=== PATIENT | female | born 1960 | race Caucasian/White ===

== ENCOUNTER 2016-09-25 14:27 | Emergency (ER) | payer OTHER ==
[~2016-09-25] VITALS: Ht 172.7 cm; Wt 77.3 kg
[~2016-09-25 14:27] MED LIST: ALBU8.5H2 INH; AMIO200T PO; ASPI-973 PO; CHOL200025 PO; FLUO40CA PO; PANT40TA3 PO; WARF5TAB7 PO
[2016-09-25 15:06] VITALS: BP 139/89; PULSE 63; RESP 16; O2SAT 100
[2016-09-25 15:55] VITALS: BP 137/78; PULSE 54; RESP 16; O2SAT 98
[2016-09-25 16:05] LABS: BASOPHILS % (AUTO) 0.5 % (0-3); EOSINOPHILS % (AUTO) 2.1 % (0-5); MONOCYTES % (AUTO) 7.1 % (4-12); Mean Corpuscular Hemoglobin 30.1 pg (27.0-35.0); Mean Corpuscular Volume 92.4 fL (81-100); NEUTROPHILS % (AUTO) 58.4 % (40-74); Platelet Count 204 bil/L (150-400)
--- NOTE | 2016-09-25 16:26 | DRSVH ---
PROCEDURE: X-RAY CHEST ONE VIEW, PORTABLE ([id number]) INDICATIONS: weakness TECHNIQUE: One view of the chest was acquired. COMPARISON: [facility], CR, XR CHEST 1VW (PORTABLE), 05/20/2016, 3:46. FINDINGS: Surgical changes and devices: Extensive surgical clips left axilla, consistent with prior breast carc inoma surgery. Lungs and pleura: No pleural effusions or pneumothorax. Lungs are clear. Mediastinum: Mediastinal contours appear normal. Heart size is normal. Bones and chest wall: No suspicious bony lesions. Overlying soft tissues appear unremarkable. IMPRESSION: Stable appearance of the chest, prior left breast carcinoma surgery. No sign of metastat ic disease, source of weakness is not found. Dictated by: Brennan Rendon M.D. on 09/25/2016 at 16:24 Approved by: Brennan Rendon M.D. on 09/25/2016 at 16:25
[2016-09-25 16:30] LABS: Magnesium 1.8 mg/dL (1.6-2.6)
[2016-09-25 16:41] LABS: TROPONIN T < 0.010 ug/L (0.0-0.011)
[2016-09-25 16:49] VITALS: BP 141/71; PULSE 57; RESP 16; O2SAT 98
--- NOTE | 2016-09-25 16:52 | ED.REPORT ---
HPI-General Illness Date of Service Sep 25, 2016 ED Provider: Jose Rafael Pizano MD Pt is a 56 year old female with a medical history including asthma, breast cancer, and atrial fibrillationo status post ablation procedure who presents to the ED from Urgent Care with fatigue onset 1.5 weeks ago. Associated symptoms include diaphoresis, nausea, and headache. The patient frequently has to sit down at work and is taking more naps than usual. She denies vomiting, fever, chills, chest pain, shortness of breath, hematochezia, vaginal bleeding, leg swelling, numbness, weakness, or other symptoms. The patient has been taking Amiodarone for the past five months and takes Tylenol regularly for her headaches. Nursing Notes Stated Complaint: FATIGUE, NAUSIA Chief Complaint: General Complaint Nursing Notes Reviewed: Yes Allergies: Coded Allergies: No Known Allergies (Verified Allergy, Unknown, 05/20/16) Scheduled Amiodarone (Amiodarone) 200 Mg Tablet 200 MG PO BID Aspirin (Aspirin) 81 Mg Tablet 81 MG PO DAILY Cholecalciferol (Vitamin D3) (Vitamin D3) 2,000 Unit Tablet 6,000 UNIT PO DAILY Fluoxetine (Fluoxetine) 40 Mg Capsule 40 MG PO DAILY Pantoprazole DR (Pantoprazole DR) 40 Mg Tablet.dr 40 MG PO DAILY Sulfamethoxazole/Trimeth 800-160 mg (Bactrim DS) 1 Each Tablet 1 TABLET PO BID Warfarin Sodium (Warfarin Sodium) 5 Mg Tablet 5 MG PO Daily except Warfarin Sodium (Warfarin Sodium) 5 Mg Tablet 2.5 MG PO Scheduled PRN Albuterol HFA (Proair HFA) 8.5 Gm Hfa.aer.ad 2 PUFFS INH q4-6 hours PRN PRN For Shortness of Breath General Time Seen by MD: 16:06 Chief Complaint Other (Fatigue) Hx Obtained From: Patient Arrived By: Walk-in Sudden in Onset?: No Onset Occurred: More than a week ago... (1.5 weeks) Symptom Duration: Since onset Location: : Head Quality: Aching Severity: Current: Moderate Severity: Maximum: Moderate Pertinent Negative: Relieved by nothing Context Related History: Reports Asthma, Reports Cancer Recent Healthcare: No recent doctor visit Past Medical History Past Medical History Paroxysmal a fib with RVR (patient reports cardioversion 9 prior to subsequent ablation) Paroxysmal atrial flutter on Warfarin Asthma History of breast cancer, stage I with TRAM flap reconstruction Previous history of alcoholism with subsequent recovery Reports: Asthma Reports: Atrial fibrillation Past Surgical History Cardiac ablation for atrial flutter by Dr. Chang August 2014 Incarcerated inguinal hernia on the left February 2016 Ventral hernia repair October 2010 Cardiac ablation #2 in May 16, 2016 Smoking History Never Smoker Social History Alcohol Use: In recovery Drug Use: Denies drug use Other Social History: Good social support, , Local resident Ambulatory Status Independent Review of Systems Full Review of Systems Constitutional: Reports: Fatigue, Denies: Chills, Fever Respiratory: Denies: Non-productive cough, Shortness of breath Cardiovascular: Denies: Chest pain GI: Reports: Nausea, Denies: Hematochezia Female: Denies: Vaginal bleeding - abnl Musculoskeletal: Denies: Extremity swelling Skin: Reports Diaphoresis Neurologic: Reports: Headache, Denies: Numbness, Weakness Complete sys rev & neg: except as marked. Physical Exam Vital Signs Vital Signs Date Time Temp Pulse Resp B/P Pulse Ox O2 Delivery O2 Flow Rate FiO2 09/25/16 18:28 58 16 139/77 99 Room Air 09/25/16 16:49 57 16 141/71 98 Room Air 09/25/16 15:55 54 16 137/78 98 Room Air 09/25/16 15:06 36.5 63 16 139/89 100 Room Air Initial VS: Reviewed General/Constitutional: Awake, Alert Head / Eyes: Atraumatic, Normocephalic, PERRL Pupils 4mm bilaterally ENT: Airway patent, Mucous membranes moist Neck: Supple, No meningismus, Full range of motion Respiratory / Chest: Breath sounds NL, Breath sounds = bilat, No respiratory distress Cardiovascular: Heart rate NL, Regular rhythm, Heart sounds NL, No gallop, No murmurs, No rubs, Peripheral circulation NL (Good distal pulses) Abdomen: Soft, Non-tender, No distention Upper Extremities Upper Extremity / MS: Atraumatic, Neurologic intact, Vascular intact (Good radial pulses) Lower Extremity / Pelvis / MS: Atraumatic, Inspection NL No calf swelling or tenderness Skin: Color NL, No rash, Warm, Dry Neurologic: Oriented X3, Speech NL, No motor deficits, No sensory deficits, Reflexes equal bilat (Patellar) No pronator drift Moving all four extremities equally No facial droop Interpretation & Diagnostics URINE DRUG SCREEN: Negative URINE DIPSTICK: 1.010 sp gravity 6 pH ++ Leukocyte Esterase Trace Protein Normal Glucose Normal Urobilinogen ~50 Victor M/ml Blood Otherwise Negative Lab Results Interpretation Result Diagram: 09/25/16 1556 09/25/16 1556 Test 09/25/16 15:56 09/25/16 17:36 White Blood Count 4.4th/mm3 (3.8-10.1) Red Blood Count 3.95mil/mm3 (3.90-5.20) Hemoglobin 11.9g/dL (12.0-15.6) Hematocrit 36.5% (35.0-46.0) Mean Corpuscular Volume 92.4fL (81-100) Mean Corpuscular Hemoglobin 30.1pg (27.0-35.0) Mean Corpuscular Hemoglobin Concent 32.6% (32.0-37.0) Red Cell Distribution Width 13.1% (12.3-15.4) Platelet Count 204bil/L (150-400) Neutrophils (%) (Auto) 58.4% (40-74) Lymphocytes (%) (Auto) 31.9% (14-46) Monocytes (%) (Auto) 7.1% (4-12) Eosinophils (%) (Auto) 2.1% (0-5) Basophils (%) (Auto) 0.5% (0-3) Sodium Level 138mEq/L (134-144) Potassium Level 3.6mEq/L (3.5-5.2) Chloride Level 102mEq/L (97-108) Carbon Dioxide Level 22mmol/L (18-29) Blood Urea Nitrogen 17mg/dL (6-24) Creatinine 0.96mg/dL (0.57-1.00) Estimat Glomerular Filtration Rate 86mL/min (>59) Glucose Level 90mg/dL (60-99) Calcium Level 9.7mg/dL (8.5-10.1) Magnesium Level 1.8mg/dL (1.6-2.6) Total Bilirubin 0.3mg/dL (0.0-1.2) Aspartate Amino Transf (AST/SGOT) 31U/L (0-50) Alanine Aminotransferase (ALT/SGPT) 31U/L (0-32) Alkaline Phosphatase 54U/L (25-150) Troponin T < 0.010ug/L (0.0-0.011) Total Protein 7.1g/dL (6.4-8.4) Albumin 4.1g/dL (3.4-5.0) Thyroid Stimulating Hormone (TSH) 2.490uIU/mL (0.450-4.500) Free Thyroxine 1.51ng/dL (0.82-1.77) Hold Fraga Top Tube Received (Received) Urine Color Straw (YELLOW) Urine Appearance Clear (CLEAR,HAZY) Urine pH 6.5 (5.0-8.0) Urine Specific [place] 1.010 (1.003-1.035) Urine Protein Negativemg/dL (NEG,TRACE) Urine Glucose (UA) Negativemg/dL (NEGATIVE) Urine Ketones Negativemg/dL (NEGATIVE) Urine Occult Blood Negative (NEGATIVE) Urine Nitrite Negative (NEGATIVE) Urine Bilirubin Negative (NEGATIVE) Urine Urobilinogen Normalmg/dL (NORMAL) Urine Leukocyte Esterase Large (NEGATIVE) Urine RBC 0-2/hpf (0-2) Urine WBC 11-50/hpf (0-5) Urine Epithelial Cells Few/hpf (NONE-MOD) Urine Crystals None seen (NONE SEEN) Urine Bacteria Few/hpf (NONE-FEW) Urine Hyaline Casts None/lpf (NONE) Urine Granular Casts None seen (NONE SEEN) Urine Waxy Casts None seen (NONE SEEN) Urine Red Blood Cell Casts None seen (NONE SEEN) Urine White Blood Cell Casts None seen (NONE SEEN) Urine Mucus Present (None Seen) Urine Trichomonas None seen (NONE SEEN) Urine Yeast None (NONE SEEN) Urinalysis Comment None Urine Culture Reflexed Indicated ECG Interpretation ECG Interpretation: Sinus rhythm rate 55 Left axis deviation Anteroseptal Q waves No ST segment elevation Diffuse T-wave flattening When compared to prior 05/20/16 patient is no longer in atrial fibrillation. Anteroseptal Q-waves not new. Diffuse T-wave abnormalities are not new. Time: 15:54 Interpreted by: ED physician X-Ray Chest Interpretation Chest Xray Interpretation: IMPRESSION: Stable appearance of the chest, prior left breast carcinoma surgery. No sign of metastatic disease, source of weakness is not found. Dictated by: Brennan Rendon M.D. on 09/25/2016 at 16:24 View: Portable, 1 view Interpretation / Wet Read by: Interpret - Radiologist Re-Eval/Medical Decision Med Decision/Clinical Course Pt is a 56 year old female with a medical history including asthma, breast cancer, and atrial fibrillationo status post ablation procedure who presents to the ED from Urgent Care with fatigue onset 1.5 weeks ago. Associated symptoms include diaphoresis, nausea, and headache. The patient frequently has to sit down at work and is taking more naps than usual. She denies vomiting, fever, chills, chest pain, shortness of breath, hematochezia, vaginal bleeding, leg swelling, numbness, weakness, or other symptoms. The patient has been taking Amiodarone for the past five months and takes Tylenol regularly for her headaches. Here in the emergency department the patient is afebrile stable vital signs and examination as above. Laboratory studies notable as below: CBC unremarkable. CMP unremarkable. TSH within normal limits. Free T4 within normal limits. Troponin negative. LFTs normal. Chest x-ray unremarkable. Urine dip positive for blood and nitrites. Urine drug screen unremarkable. ECG 1554: Sinus rhythm rate 55 Left axis deviation Anteroseptal Q waves No ST segment elevation Diffuse T-wave flattening When compared to prior 05/20/16 patient is no longer in atrial fibrillation. Anteroseptal Q-waves not new. Diffuse T-wave abnormalities are not new. Patient presents with generalized weakness fatigue. I considered ACS, however has had no chest pain, EKG is not indicative of ACS, and screening troponin is negative. Also considered stroke, however no lateralizing neurologic symptoms, no trauma. The patient is not hypovolemic, as has has no history of n/v/d, and orthostatics were negative. i do not suspect GIB in the absence of hematemesis or melana, negative history and normal hematocrit. Serious infection is unlikely as afebrile, nontoxic, CXR negative no meningismus. Note patient does have urinary tract infection and I will treat with a 5 day course of Bactrim. Iron studies were normal. She does report depression though is without any suicidal ideation. I suspect that this may play a role in her generalized vague presentation. She is also on multiple medications that may be contributing to fatigue. She is advised to take antibiotics and follow closely with her primary care doctor to see if she is still in the next few days. Prior to discharge follow-up and return precautions were reviewed in detail with the patient who verbalized understanding and agreement with the plan. The patient was discharged in stable condition. Time of Eval: 18:07 Patient Status: Condition improved Re-Evaluation/Progress Note: Discussed with patient x-ray, CT, and lab results, diagnosis, and plan for discharge. Follow-up and return to the ER instructions given. Patient agrees with plan for care and all questions were addressed. Counseled Regarding: Diagnosis, Lab results, Need for follow-up, When/why to return to ED Discharge & Departure Primary Impression: Urinary tract infection Urinary tract infection type: acute cystitis Hematuria presence: without hematuria Qualified Code: N30.00 - Acute cystitis without hematuria Additional Impressions: Fatigue Fatigue type: unspecified Qualified Code: R53.83 - Other fatigue History of depression H/O prior ablation treatment Disposition: Home Discharge Condition All VS Reviewed: Yes Condition: Improved Additional Instructions: Thank you for seeking care at the emergency room. He was seen today because you been generally fatigued. Our primary goal today in the ED was to evaluate you for any life-threatening conditions. Your evaluation was reassuring. It does appear that you have a UTI and we have prescribed a course of antibiotics. This may explain some of your symptoms. I am not completely sure why you feel so fatigued, the screening examination and labs today were otherwise normal. Some of your symptoms may be related to your medications as well as your underlying depression. You should follow-up with your primary doctor in the next week. Should discuss your depression further as well as the side effects of your medications. Your doctor may wish to change some of these medications. You should return to the ED immediately if you develop worsening symptoms, thoughts of harming herself, fevers, vomiting, cough, shortness of breath, chest pain, lightheadedness, weakness or any other concerning signs or symptoms. Thank you for letting us partake in your care today. Referrals: Anna Cronin PA-C (PCP) [facility] Att[facility] Portions of this note were transcribed by Lyly Velasquez. I, Dr. Pizano, personally performed the history, physical exam, and medical decision-making; I reviewed and confirmed the accuracy of the information in the transcribed note. Signed by: Phong Ross, 09/25/2016, 20:50 copies to: Anna Cronin PA-C, Beck O MD Sep 25, 2016 16:52 LYLY VELASQUEZ Sep 25, 2016 17:20
[2016-09-25 18:03] LABS: APPEARANCE,URINE CLEAR (CLEAR,HAZY); COLOR,URINE STRAW (YELLOW); PH,URINE 6.5 (5.0-8.0)
[2016-09-25 18:04] LABS: OCCULT BLOOD,URINE NEGATIVE (NEGATIVE); UROBILINOGEN,URINE NORMAL (NORMAL)
[2016-09-25] MEDS ORDERED: SULF1TAB7 PO (18:16)
[2016-09-25 18:28] VITALS: BP 139/77; PULSE 58; RESP 16; O2SAT 99
== END 2016-09-25 18:29 | disposition home or self-care (01) ==
LOC: SED 14:27
DX: N30.00 Acute cystitis without hematuria (principal); R53.83 Other fatigue; I48.91 Unspecified atrial fibrillation; J45.909 Unspecified asthma, uncomplicated; Z79.82 Long term (current) use of aspirin; Z79.01 Long term (current) use of anticoagulants; Z86.59 Personal history of other mental and behavioral disorders; Z86.79 Personal history of other diseases of the circulatory system